=== PATIENT | male | born 1980 | race Caucasian/White ===

== ENCOUNTER 2024-11-22 21:04 | Emergency (ER) | payer SELFPAY ==
[2024-11-22] MEDS: Lidocaine 2% 5 ML SDV INJECT ONE (22:30)
== END 2024-11-22 22:57 | disposition home or self-care (01) ==
LOC: MW.ED 21:04
DX: L03.011 Cellulitis of right finger (principal); F17.210 Nicotine dependence, cigarettes, uncomplicated
CPT/HCPCS: 10060; 99282; 99283-25; J3490

== ENCOUNTER 2025-10-01 23:15 | Emergency (ER) | payer MEDICAID ==
[2025-10-02] MEDS: SUMAtriptan 6 MG/0.5 ML SDV SUBCUT ONE (00:20)
[2025-10-02] MEDS: Ketorolac 30 MG/ML SDV IVPUSH ONE (01:23)
[2025-10-02] MEDS: diphenhydrAMINE 50 MG/ML SDV IVPUSH ONE (01:24)
== END 2025-10-02 02:40 | disposition home or self-care (01) ==
LOC: MW.ED 23:15
DX: G43.909 Migraine, unspecified, not intractable, without status migrainosus (principal); Z86.16 Personal history of COVID-19
CPT/HCPCS: 96372; 96374; 96375; 99284; J1200; J1885; J2765; J3030; 99283